=== PATIENT | male | born 1960 | race African-American/Black ===

== ENCOUNTER 2016-10-31 15:23 | Emergency (ER) | payer BC ==
[~2016-10-31] VITALS: Ht 177.8 cm; Wt 120.0 kg
[~2016-10-31 15:23] MED LIST: ALBU1AER INH; ASPI325T PO; LISI-363 PO; NORV10TA PO; PRED10PA2 PO; PRED20 PO; ULTR50TA5 PO
[2016-10-31 15:25] VITALS: BP 188/110; PULSE 88; RESP 20; TEMP 98.3; O2SAT 99
--- NOTE | 2016-10-31 15:31 | PD ---
Physical Exam Time Seen by Provider: 15:29 Narrative 55yo M c/o LUQ abd pain off and on [id number]. Denies N, V, fever, Reports diarrhea off and on for 6 months. Denies ETOH. Patient seen in triage. Awaiting bed placement. VS reviewed. Data Data Last Documented VS Vital Signs Date Time Temp Pulse Resp B/P Pulse Ox O2 Delivery O2 Flow Rate FiO2 10/31/16 15:25 98.3 88 20 188/110 99 MDM Supervised Visit with LAUREN: Nichol Leal October 31, 2016 15:31
--- NOTE | 2016-10-31 17:26 | PD ---
HPI Chief Complaint: Abdominal Pain Time Seen by Provider: 17:21 Travel History International Travel<30 days: No Contact w/Intl Traveler<30days: No Traveled to known affect area: No History of Present Illness HPI 55-year-old Afro-[place] male presents the emergency department with left upper quadrant/flank pain for the past week. Worse the last 3 days. Patient denies nausea, or vomiting, but has had intermittent diarrhea for over a month. Patient has no history of colitis or diverticulitis in the past. He also states urinary frequency and difficulty starting his pain. He denies fever, chills, or cough or shortness of breath. He is a long-term smoker. He has no diagnosis of diabetes. Pain is rated as a 5-6/10. He has no known drug allergies. The only meds he takes lisinopril and hydrochlorothiazide for hypertension. PFSH Past Medical History Heart Rhythm Problems: No Cardiac Catheterization: Yes ('05) Cardiovascular Problems: Yes (HTN) High Cholesterol: Yes Chest Pain: Yes Congestive Heart Failure: No Cerebrovascular Accident: Yes (thinks he has had several) Diabetes: No Diminished Hearing: No Endocrine: No GERD: Yes Genitourinary: Yes Hypertension: Yes Immune Disorder: No Psychiatric: No Reproductive: No Migraines: Yes Myocardial Infarction: No Past Surgical History Coronary Artery Bypass Graft: No Other Surgery: No Social History Alcohol Use: No Tobacco Use: Yes (1/2 PPD) Substance Use: No Allergies-Medications (Allergen,Severity, Reaction): Coded Allergies: No Known Allergies (Verified , 10/31/16) Reported Meds & Prescriptions Reported Meds & Active Scripts Active Reported Lisinopril-Hctz 20-12.5 Mg Tab 1 Tab PO DAILY Review of Systems Except as stated in HPI: all other systems reviewed are Neg General / Constitutional: No: Fever Eyes: No: Visual changes HENT: No: Headaches Cardiovascular: No: Chest Pain or Discomfort Respiratory: No: Shortness of Breath Gastrointestinal: Positive: Diarrhea, Abdominal Pain, No: Nausea, Vomiting, Constipation, Loss of Appetite Genitourinary: No: Dysuria Musculoskeletal: No: Pain Skin: No Rash Neurologic: No: Weakness Psychiatric: No: Depression Endocrine: No: Polydipsia Hematologic/Lymphatic: No: Easy Bruising Physical Exam Narrative GENERAL: She appears in no acute distress. He is moderately obese. SKIN: Warm and dry. Normal color. Normal turgor. HEAD: Atraumatic. Normocephalic. EYES: Pupils equal and round. No scleral icterus. No injection or drainage. ENT: No nasal bleeding or discharge. Mucous membranes pink and moist. Pharynx is clear. NECK: Trachea midline. Supple and nontender. CARDIOVASCULAR: Regular rate and rhythm. RESPIRATORY: No accessory muscle use. Clear to auscultation. Breath sounds equal bilaterally. GASTROINTESTINAL: Abdomen soft, mild to moderate tenderness in the left upper quadrant and left CVA, nondistended. No specific point tenderness or rebound. Bowel sounds are present in all quadrants. Hepatic and splenic margins not palpable. MUSCULOSKELETAL: Extremities without clubbing, cyanosis, or edema. No obvious deformities. NEUROLOGICAL: Awake and alert. No obvious cranial nerve deficits. Motor grossly within normal limits. Five out of 5 muscle strength in the arms and legs. Normal speech. PSYCHIATRIC: Appropriate mood and affect; insight and judgment normal. Data Data Last Documented VS Vital Signs Date Time Temp Pulse Resp B/P Pulse Ox O2 Delivery O2 Flow Rate FiO2 10/31/16 19:00 77 16 140/101 99 Room Air 10/31/16 15:25 98.3 Orders Complete Blood Count With Diff (10/31/16 17:35) Comprehensive Metabolic Panel (10/31/16 17:35) Lipase (10/31/16 17:35) Prothrombin Time / Inr (Pt) (10/31/16 17:35) Act Partial Throm Time (Ptt) (10/31/16 17:35) Urinalysis - C+S If Indicated (10/31/16 17:35) Ct Abd/Pel W Iv Contrast(Rout) (10/31/16 17:35) Iv Access Insert/Monitor (10/31/16 17:35) Ecg Monitoring (10/31/16 17:35) Oximetry (10/31/16 17:35) NPO (10/31/16 17:35) Morphine Inj (Morphine Inj) (10/31/16 17:45) Ondansetron Inj (Zofran Inj) (10/31/16 17:45) Sodium Chlor 0.9% 1000 Ml Inj (Ns 1000 M (10/31/16 17:35) Sodium Chloride 0.9% Flush (Ns Flush) (10/31/16 17:45) Electrocardiogram (10/31/16 17:35) Chest, Single Ap (10/31/16 17:35) Oral Contrast - Adult (10/31/16 17:51) Diatrizoate Liq ( Gastropat Liq) (10/31/16 18:07) Iohexol 350 Inj (Omnipaque 350 Inj) (10/31/16 19:40) Labs Laboratory Tests Test 10/31/16 10/31/16 18:00 19:46 White Blood Count 7.7 TH/MM3 Red Blood Count 5.00 MIL/MM3 Hemoglobin 13.4 GM/DL Hematocrit 42.1 % Mean Corpuscular Volume 84.2 FL Mean Corpuscular Hemoglobin 26.8 PG Mean Corpuscular Hemoglobin 31.9 % Concent Red Cell Distribution Width 15.5 % Platelet Count 220 TH/MM3 Mean Platelet Volume 8.5 FL Neutrophils (%) (Auto) 65.9 % Lymphocytes (%) (Auto) 24.7 % Monocytes (%) (Auto) 6.5 % Eosinophils (%) (Auto) 2.3 % Basophils (%) (Auto) 0.6 % Neutrophils # (Auto) 5.0 TH/MM3 Lymphocytes # (Auto) 1.9 TH/MM3 Monocytes # (Auto) 0.5 TH/MM3 Eosinophils # (Auto) 0.2 TH/MM3 Basophils # (Auto) 0.0 TH/MM3 CBC Comment DIFF FINAL Differential Comment Prothrombin Time 11.3 SEC Prothromb Time International 1.0 RATIO Ratio Activated Partial 25.3 SEC Thromboplast Time Sodium Level 143 MEQ/L Potassium Level 4.3 MEQ/L Chloride Level 107 MEQ/L Carbon Dioxide Level 31.7 MEQ/L Anion Gap 4 MEQ/L Blood Urea Nitrogen 15 MG/DL Creatinine 1.53 MG/DL Estimat Glomerular Filtration 58 ML/MIN Rate Random Glucose 77 MG/DL Calcium Level 8.5 MG/DL Total Bilirubin 0.3 MG/DL Aspartate Amino Transf 28 U/L (AST/SGOT) Alanine Aminotransferase 17 U/L (ALT/SGPT) Alkaline Phosphatase 78 U/L Total Protein 7.2 GM/DL Albumin 3.3 GM/DL Lipase 120 U/L Urine Color YELLOW Urine Turbidity CLEAR Urine pH 6.0 Urine Specific Gregory 1.023 Urine Protein TRACE mg/dL Urine Glucose (UA) NEG mg/dL Urine Ketones NEG mg/dL Urine Occult Blood NEG Urine Nitrite NEG Urine Bilirubin NEG Urine Urobilinogen LESS THAN 2.0 MG/DL Urine Leukocyte Esterase SMALL Urine WBC 5 /hpf Urine Bacteria RARE /hpf Urine Mucus FEW /lpf Microscopic Urinalysis Comment CULT NOT INDICATED MDM Medical Decision Making Medical Screen Exam Complete: Yes Emergency Medical Condition: Yes Medical Record Reviewed: Yes Differential Diagnosis Abdominal pain. Left flank pain. Diverticulitis. Urinary tract infection. Kidney stone. Renal colic. Pancreatitis. Narrative Course Patient is medically stable at time of exam. Labs ordered including CBC, CMP, lipase, urinalysis. Chest x-ray is ordered as well as EKG. CT of the abdomen with IV contrast is ordered. CBC shows no acute findings. CMP is unremarkable. Urinalysis shows no obvious findings. CT of the abdomen shows no acute process per radiologist. Patient is felt to have muscle skeletal pain versus constipation. Patient will be treated with tramadol 50 mg one every 6 hours when necessary pain. Patient is to follow-up with his local primary care physician or return to emergency department if worsening symptoms develop. Diagnosis Primary Impression: Abdominal wall pain in left upper quadrant Referrals: [facility] Primary Care Physician Patient Instructions: Abdominal Pain (ED), General Instructions Departure Forms: Work Release Enter return to work date: November 02, 2016 Special Instructions: Patient was seen in the emergency department and should not return to work until November 02, 2016. Additional Instructions: CBC shows no acute findings. CMP is unremarkable. Urinalysis shows no obvious findings. CT of the abdomen shows no acute process per radiologist. Patient is felt to have muscle skeletal pain versus constipation. Patient will be treated with tramadol 50 mg one every 6 hours when necessary pain. Patient is to follow-up with his local primary care physician or return to emergency department if worsening symptoms develop. Med/Other Pt SpecificInfo: Prescription(s) given Disposition: DISCHARGE HOME Condition: Stable Jerson Gilman October 31, 2016 17:26
[2016-10-31] MEDS ORDERED: SODIUM CHLOR 0.9% 1000 ML INJ 1,000 ML IV SCH (17:35)
[2016-10-31] MEDS ORDERED: MORPHINE SULFATE 4 MG/ML INJ IV PUSH ONE (17:45)
[2016-10-31] MEDS ORDERED: ONDANSETRON HCL 4 MG/2 ML VIAL IVP ONE (17:45)
[2016-10-31] MEDS ORDERED: SODIUM CHLORIDE 0.9% FLUSH 10 ML FLUSH IV FLUSH PRN (17:45)
--- NOTE | 2016-10-31 17:53 | RADRPT ---
EXAM DATE/TIME: 10/31/2016 17:43 [facility] COMPARISON: CHEST SINGLE AP, May 20, 2016, 12:29. INDICATIONS : Cough MEDICAL HISTORY : Cerebrovascular disease. Hypertension SURGICAL HISTORY : None. ENCOUNTER: Initial ACUITY: 1 day PAIN SCORE: 2/10 LOCATION: Bilateral chest FINDINGS: A single view of the chest demonstrates the lungs to be symmetrically aerated without evidence of mas s, infiltrate or effusion. The cardiomediastinal contours are unremarkable. Osseous structures are intact. CONCLUSION: No acute disease. Mohan Green MD on October 31, 2016 at 17:52 Board Certified Radiologist. This report was verified electronically.
[2016-10-31] MEDS ORDERED: LISI20TA PO (17:57)
[2016-10-31 18:02] VITALS: RESP 18; O2SAT 100
[2016-10-31] MEDS ORDERED: DIATRIZOATE MEGLUM/DIATRIZOATE SOD 9 ML CUP ONE (18:07)
[2016-10-31 18:12] LABS: BASOPHIL % 0.6 % (0.0-2.0); EOSINOPHIL # 0.2 TH/MM3 (0-0.4); EOSINOPHIL % 2.3 % (0.0-4.0); HEMATOCRIT 42.1 % (39.0-51.0); HEMO FLAGS DIFF FINAL; LYMPH % 24.7 % (9.0-44.0); LYMPHOCYTE # 1.9 TH/MM3 (1.0-4.8); MEAN CELL VOLUME 84.2 FL (80.0-100.0); MEAN CORPUSCULAR HEMOGLOBIN 26.8 PG (27.0-34.0); MEAN CORPUSCULAR HGB CONC 31.9 % (32.0-36.0); MONO % 6.5 % (0.0-8.0); NEUT % 65.9 % (16.0-70.0); PLATELET COUNT 220 TH/MM3 (150-450); RED CELL DISTRIBUTION WIDTH 15.5 % (11.6-17.2); WHITE BLOOD COUNT 7.7 TH/MM3 (4.0-11.0)
[2016-10-31 18:33] LABS: ALKALINE PHOSPHATASE 78 U/L (45-117); ALT (GPT) 17 U/L (12-78); ANION GAP 4 MEQ/L (5-15); AST (GOT) 28 U/L (15-37); BICARBONATE 31.7 MEQ/L (21.0-32.0); BLOOD UREA NITROGEN 15 MG/DL (7-18); CHLORIDE 107 MEQ/L (98-107); GLOMERULAR FILTRATION RATE 58 ML/MIN (>89); SODIUM (NA) 143 MEQ/L (136-145); TOTAL BILIRUBIN ADULT 0.3 MG/DL (0.2-1.0)
[2016-10-31 18:34] LABS: APTT (PATIENT) 25.3 SEC (24.3-30.1); PROTHROMBIN TIME - PATIENT 11.3 SEC (9.8-11.6)
[2016-10-31 18:42] LABS: POTASSIUM 4.3 MEQ/L (3.5-5.1)
[2016-10-31 19:00] VITALS: BP 140/101; PULSE 77; RESP 16; O2SAT 99
[2016-10-31] MEDS ORDERED: IOHEXOL 350 MG/ML 10 ML VIAL (for RAD DIAG) IV ONE (19:40)
[2016-10-31 20:11] LABS: BACTERIA, URINE RARE /hpf; BLOOD, URINE NEG (NEG); GLUCOSE,URINE NEG (NEG); KETONE, URINE NEG (NEG); MUCUS URINE FEW /lpf (OCC); NITRITE,URINE NEG (NEG); URINE COLOR YELLOW (YELLW/STRAW)
[2016-10-31 20:14] LABS: COMMENT (UR) CULT NOT INDICATED; CULTURE IF INDICATED CULT NOT INDICATED
--- NOTE | 2016-10-31 20:25 | RADRPT ---
EXAM DATE/TIME: 10/31/2016 19:34 [facility] COMPARISON: No previous studies available for comparison. INDICATIONS : Left upper quadrant pain. IV CONTRAST: 96 cc Omnipaque 350 (iohexol) IV ORAL CONTRAST: Prescribed oral contrast ingested. RADIATION DOSE: 22.13 CTDIvol (mGy) MEDICAL HISTORY : Hypertension. Gastroesophageal reflux disease. SURGICAL HISTORY : None. ENCOUNTER: Initial ACUITY: 1 week PAIN SCALE: 6/10 LOCATION: Left upper quadrant TECHNIQUE: Volumetric scanning of the abdomen and pelvis was performed. Using automated exposure control and adjustment of the mA and/or kV according to patient size, radiation dose was kept as low as reasonably achievable to obtain optimal diagnostic quality images. FINDINGS: Lung bases are clear. Scattered low density lesions are seen in the liver. The one on the dome of the liver may be hemangioma. The others appear somewhat cystic. Spleen, pancreas, adrenals and kidneys are unremarkable. There is symmetrical renal function. There is no ascites or adenopathy appreciated. Region of the cecum and terminal ileum are unremarkable. Prostate is prominent. CONCLUSION: 1. Negative CT scan of the abdomen and pelvis for an acute process. 2. Scattered cysts and hemangioma in the liver. Nomi Michele MD FACR on October 31, 2016 at 20:07 Board Certified Radiologist. This report was verified electronically.
[2016-10-31] MEDS ORDERED: TRAM50TA PO (20:41)
--- NOTE | 2016-11-01 21:38 | EKG ---
Date Performed: 10/31/2016 Time Performed: 18:42:14 PTAGE: 55 years EKG: Sinus rhythm ST DEVIATION AND MODERATE T-WAVE ABNORMALITY, CONSIDER LATERAL ISCHEMIA ST DEVIATION AND MODERATE T- WAVE ABNORMALITY, CONSIDER INFERIOR ISCHEMIA ABNORMAL ECG PREVIOUS TRACING : 05/20/2016 12.53 Compared to prior tracing no significant change DOCTOR: Garrett Agustin Interpretating Date/Time 11/01/2016 21:36:54
== END 2016-10-31 20:51 | disposition home or self-care (01) ==
LOC: NEPC 15:23
DX: R10.32 Left lower quadrant pain (principal); R19.7 Diarrhea, unspecified; R94.31 Abnormal electrocardiogram [ECG] [EKG]; I10 Essential (primary) hypertension; K21.9 Gastro-esophageal reflux disease without esophagitis; F17.210 Nicotine dependence, cigarettes, uncomplicated; E78.00 Pure hypercholesterolemia, unspecified; Z86.73 Personal history of transient ischemic attack (TIA), and cerebral infarction without residual deficits
CPT/HCPCS: 71010; 74177; 80053; 81001; 83690; 85025; 85610; 85730; 93005; 96361; 96374; 96375; 99285; J2270; J2405; J7030; Q9963; Q9967